=== PATIENT | female | born 1975 | race Two or more races ===

== ENCOUNTER 2024-09-09 21:32 | Emergency (ER) | payer MEDICAID ==
[~2024-09-09] VITALS: Ht 167.6 cm; Wt 96.3 kg
[2024-09-09 22:09] LABS: BILIRUBIN,URINE NEGATIVE (Neg); CLARITY,URINE SLIGHTLY CLOUDY (Clear); COLOR,URINE YELLOW (Yellow); GLUCOSE, URINE NEGATIVE (Neg); KETONES,URINE NEGATIVE (Neg); LEUKOCYTE ESTERASE ,URINE SMALL (Neg); NITRITES, URINE POSITIVE (Neg); OCCULT BLOOD,URINE LARGE (Neg); PH,URINE 8.5 (4.8-8.0); PROTEIN,URINE NEGATIVE (Neg); UROBILINOGEN,URINE 0.2 E.U/dL (0.2-1.0)
[2024-09-09 22:13] LABS: UA COLLECTION TYPE CLN CATCH MIDSTREAM
[2024-09-09 22:16] LABS: BACTERIA,URINE 4+ /HPF (Neg); WBC CLUMPS,URINE FEW /HPF (NEGATIVE)
[2024-09-09 22:17] LABS: WBC,URINE 20-30 /HPF (0-4)
[2024-09-09 22:18] LABS: RBC,URINE 20-50 /HPF (0-2); SQUAMOUS EPITHELIAL CELL,UR FEW /LPF (FEW)
[2024-09-09] MEDS ORDERED: ketorolac trometh 15mg/ml vial 15 MG/ML ML IM ONE (22:30)
[2024-09-09 22:49] LABS: BASOPHILS % (AUTO) 0.6 % (0-1); EOSINOPHILS # (AUTO) 0.1 X10'3 (0-0.9); EOSINOPHILS % (AUTO) 1.4 % (0-6); HEMOGLOBIN 11.5 g/dl (12.0-16.0); LYMPHOCYTES # (AUTO) 1.7 X10'3 (1.1-4.8); LYMPHOCYTES % (AUTO) 27.5 % (21-51); MEAN CORPUSCULAR HEMOGLOBIN 29.5 PG (27.0-31.0); MEAN CORPUSCULAR HGB CONC 33.9 g/dL (33.0-36.5); MEAN CORPUSCULAR VOLUME 87.3 FL (78-98); MEAN PLATELET VOLUME 8.5 FL (7.4-10.4); MONOCYTES # (AUTO) 0.5 X10'3 (0-0.9); MONOCYTES % (AUTO) 7.6 % (2-12); NEUTROPHILS # (AUTO) 3.9 X10'3 (1.8-7.7); NEUTROPHILS % (AUTO) 62.9 % (42-75); PLATELET COUNT 320 X10'3 (140-440); RED CELL DISTRIBUTION WIDTH 12.3 % (11.5-14.5); WHITE BLOOD COUNT 6.2 X10'3 (4.5-11.0)
[2024-09-09] MEDS: ketorolac trometh 30MG/ML vial 30 MG/ML VIAL IV ONE (23:00)
[2024-09-09] MEDS: normal saline 1000ML IV soln IVB ONE ×2 (23:01→23:14)
[2024-09-09 23:08] LABS: ALANINE AMINOTRANSFERASE 17 U/L (12-78); ALBUMIN 3.6 G/DL (3.4-5.0); ALBUMIN/GLOBULIN RATIO 0.9 (1.1-1.5); ALKALINE PHOSPHATASE 88 IU/L (46-116); ANION GAP 6 (8-16); ASPARTATE AMINO TRANSFERASE 16 U/L (10-37); BILIRUBIN,TOTAL 0.6 MG/DL (0.1-1.0); BLOOD UREA NITROGEN 16 MG/DL (7-18); BUN/CREATININE RATIO 17.4 (10.0-20.0); CALCIUM 8.6 MG/DL (8.5-10.1); CHLORIDE 105 MMOL/L (99-107); CREATININE 0.92 MG/DL (0.40-0.90); GLUCOSE 100 MG/DL (70-104); LIPASE 38 U/L (16-77); POTASSIUM 3.9 MMOL/L (3.5-5.1); SODIUM 142 MMOL/L (135-145); TOTAL CARBON DIOXIDE 30.9 MMOL/L (24-32); TOTAL PROTEIN 7.8 G/DL (6.4-8.2); eCRCL 68 ML/MIN; eGFR 65 ML/MIN
[2024-09-09] MEDS: CefTRIAXone 2gm/D5W 50ml BAG 50 ML IV ONE (23:24)
[2024-09-10] MEDS ORDERED: CEFU250T95 PO (00:38)
[2024-09-10 00:46] VITALS: BP 123/70; PULSE 65; RESP 16; TEMP 98.6; O2SAT 99
== END 2024-09-10 00:48 | disposition home or self-care (01) ==
LOC: ER 21:32
DX: N12 Tubulo-interstitial nephritis, not specified as acute or chronic (principal); Z79.899 Other long term (current) drug therapy
CPT/HCPCS: 36415; 74176; 80053; 81001; 83690; 84145; 85025; 87088; 96365; 96375; 99285; J0696; J1885; J7030; 87077; 87186